=== PATIENT | female | born 1985 | race Asian ===

== ENCOUNTER 2022-06-23 10:56 | Emergency (ER) | payer OTHER ==
[~2022-06-23] VITALS: Ht 175.3 cm; Wt 99.8 kg
[2022-06-23 11:00] VITALS: TEMP 98.1
[2022-06-23 12:05] LABS: PLATELET COUNT 313 K/uL (152-353)
[2022-06-23 13:00] VITALS: BP 140/79
== END 2022-06-23 13:00 | disposition home or self-care (01) ==
LOC: ED 10:56
PROVIDERS: Emergency Medicine Emergency Medical Services
DX: N20.1 Calculus of ureter (principal); Z87.442 Personal history of urinary calculi
CPT/HCPCS: 81000; 85027; 96360; 96374; 96375; 99284; J1170; J2405

== ENCOUNTER 2022-08-26 09:02 | Emergency (ER) | payer OTHER ==
[~2022-08-26] VITALS: Ht 175.3 cm; Wt 99.8 kg
[2022-08-26 09:08] VITALS: TEMP 97.3
[2022-08-26 09:37] LABS: PLATELET COUNT 325 K/uL (152-353)
[2022-08-26 09:44] LABS: POTASSIUM 3.5 mmol/L (3.6-5.2)
[2022-08-26 10:18] VITALS: BP 153/93
== END 2022-08-26 10:32 | disposition home or self-care (01) ==
LOC: ED 09:02
PROVIDERS: Emergency Medicine
DX: N23 Unspecified renal colic (principal); Z87.442 Personal history of urinary calculi; R31.9 Hematuria, unspecified
CPT/HCPCS: 36415; 80048; 81000; 81025; 85027; 93005; 96374; 96375; 99284; J1170; J2405